=== PATIENT | female | born 1990 | race American Indian/Alaskan Native ===

== ENCOUNTER 2017-08-04 12:44 | Emergency (ER) | payer MEDICAID ==
[2017-08-04 13:27] LABS: HCG Qualitative,Urine Negative (Negative)
[2017-08-04 13:28] LABS: Bilirubin,Urine NEG (Negative); Blood,Urine NEG (Negative); Color,Urine Straw (Yellow); Protein,Urine <15 mg/dL mg/dL (Negative); RBC,Urine < 1.0 /HPF (0.0-6.0); Urobilinogen,Urine < 2.0 mg/dL (<2.0); WBC,Urine < 1.0 /HPF (0.0-6.0)
--- NOTE | 2017-08-04 13:29 | Emergency Department Report ---
ED Recheck HPI - General Chief Complaint: High BP Stated Complaint: HIGH BLOOD PRESSURE Time Seen by Provider: 08/04/17 13:28 Source: patient Mode of arrival: Ambulatory Limitations: No Limitations - History of Present Illness Initial Comments: Patient he requests then STD test then and test and worried that her blood pressure might be high and that she is on blood pressure medication and she is out of her blood pressure medicine she is requesting blood pressure medication. Last menstrual cycle was 07/21/2017. Denies any nausea or vomiting. Denies any pain. Denies any headache or blurred vision. Denies any chest pain or shortness of breath. Complaint: medication refill request, other ( test an STD check) Initial Visit For: other (no initial visit) Returns Today for: request for prescription Symptoms Since Prior Visit: no new symptoms Context: ran out of medication Associated Symptoms: none Treatments Prior to Arrival: other (not applicable) - Related Data Home Medications Medication Instructions Recorded Confirmed Last Taken Lisinopril [Prinivil] 10 mg PO DAILY 08/04/17 08/04/17 Unknown Allergies Allergy/AdvReac Type Severity Reaction Status Date / Time No Known Allergies Allergy Unverified 08/04/17 12:56 ED Review of Systems ROS: Stated complaint: HIGH BLOOD PRESSURE Other details as noted in HPI Comment: All other systems reviewed and negative Constitutional: no symptoms reported, other (Pt requests then test, STD check and medication refill) Eyes: denies: eye pain, eye discharge ENT: denies: ear pain, dental pain, hearing loss, epistaxis, congestion Respiratory: no symptoms reported Cardiovascular: denies: chest pain, palpitations, dyspnea on exertion, edema, syncope, paroxysmal nocturnal dyspnea Gastrointestinal: denies: abdominal pain, nausea, vomiting, diarrhea, constipation, hematemesis, melena, hematochezia Genitourinary: denies: frequency, hematuria, discharge, abnormal menses, dyspareunia Musculoskeletal: denies: back pain, joint swelling, arthralgia Skin: denies: rash Neurological: denies: headache, numbness, paresthesias, confusion, abnormal gait ED Past Medical Hx - Past Medical History Previous Medical History?: Yes Hx Hypertension: Yes (with ) Additional medical history: Vasginal delivery 12-18-2015 - Surgical History Past Surgical History?: No - Family History Family history: no significant - Social History Smoking Status: Current Every Day Smoker Substance Use Type: Alcohol, Marijuana - Medications Home Medications: Home Medications Medication Instructions Recorded Confirmed Last Taken Type Lisinopril [Prinivil] 10 mg PO DAILY 08/04/17 08/04/17 Unknown History ED Physical Exam - General Limitations: No Limitations General appearance: alert, in no apparent distress - Head Head exam: Present: atraumatic, normocephalic, normal inspection - Eye Eye exam: Present: normal appearance, PERRL, EOMI - ENT ENT exam: Present: normal exam, normal orophraynx, mucous membranes moist - Respiratory Respiratory exam: Present: normal lung sounds bilaterally. Absent: respiratory distress, chest wall tenderness, accessory muscle use - Cardiovascular Cardiovascular Exam: Present: regular rate, normal rhythm, normal heart sounds. Absent: systolic murmur, diastolic murmur - GI/Abdominal GI/Abdominal exam: Present: soft, normal bowel sounds. Absent: distended, tenderness, guarding, rebound, rigid, organomegaly, mass, bruit, pulsatile mass , hernia - Extremities Exam Extremities exam: Present: normal inspection, full ROM, normal capillary refill. Absent: tenderness, pedal edema - Neurological Exam Neurological exam: Present: alert, oriented X3, normal gait - Psychiatric Psychiatric exam: Present: normal affect, normal mood - Skin Skin exam: Present: warm, dry, intact, normal color. Absent: rash ED Course Vital Signs 08/04/17 12:57 Temperature 98 F Pulse Rate 58 L Respiratory 18 Rate Blood Pressure 122/89 O2 Sat by Pulse 100 Oximetry - Reevaluation(s) Reevaluation #1: 08/04/17 13:49 I discussed the patient did a test is negative, I also discussed with her that emergency room is not the place to do STD check and I will refer her for STD clinic that does free STD testing. Patient did have test done which was negative patient also had urinalysis done which was negative. She is not having any pain and she is asymptomatic for vaginal discharge or bleeding 08/04/17 13:49 ED Recheck MDM - Medical Decision Making ED course: She reports that she would like to have her blood pressure medication refill because she's been out of it for a year. She is also requested STD and test because she said she does have a primary care physician. Patient had urinalysis ordered and hCG test ordered in triage which was negative for and no infection seen. Patient blood pressure today is 122/89. I discussed with her that she needs to keep a log of her blood pressure and follow up at the [facility] for management. Discussed with her that her blood pressure is stable and although the bottom number is an 89 it's still consider prehypertensive. I told her that she has been out of her medication for one year and will not be ordering any blood pressure medication on her until she is seen by her primary care doctor that can manage her. She is given an information on STD clinic that does free STD check to include HIV. She was given phone number and address. I discussed lab work with her. She was understanding discharged home in stable condition. Patient was understanding and and need to follow up as instructed. Critical care attestation.: If time is entered above; I have spent that time in minutes in the direct care of this critically ill patient, excluding procedure time. ED Disposition Clinical Impression: Patient requests medication, not given, Patient requested test Disposition: DC- TO HOME OR SELFCARE Is pt being admited?: No Does the pt Need Aspirin: No Condition: Stable Instructions: Sexually Transmitted Diseases (ED), Safe Sex (ED), Heart Healthy Diet (ED), DASH Eating Plan (ED), Low Sodium Diet (ED), Hypertension (ED) Additional Instructions: Please follow up with [facility] for primary care visit Please think your blood pressure and keep a log and follow-up with primary care clinic for monitoring of blood pressure Please see information on high blood pressure, management of high blood pressures through less than a modification. Practice safe sex He can go to free STD clinic and will do free HIV and STD testing . Please see documented given an call and Sunday to schedule appointment Referrals: [facility] [Outside] - 08/06/17 [facility] [Outside] - 08/06/17
[2017-08-04 14:41] VITALS: BP 128/86
== END 2017-08-04 14:40 | disposition home or self-care (01) ==
LOC: ED 12:44
DX: Z20.2 Contact with and (suspected) exposure to infections with a predominantly sexual mode of transmission (principal); I10 Essential (primary) hypertension; F17.200 Nicotine dependence, unspecified, uncomplicated
CPT/HCPCS: 81001; 81025; 99283